=== PATIENT | female | born 1980 | race Caucasian/White ===

== ENCOUNTER 2016-08-01 18:50 | Emergency (ER) | payer MEDICAID, OTHER ==
[~2016-08-01] VITALS: Ht 170.2 cm; Wt 103.0 kg
[2016-08-01 19:39] VITALS: BP 132/77
--- NOTE | 2016-08-01 20:00 | NUR ---
PT TAKEN TO BED 7
--- NOTE | 2016-08-01 20:10 | NUR ---
Dr. Berg evaluating patient at bedside.
[2016-08-01] MEDS ORDERED: ACETAMINOPHEN 325 MG TAB ONE (20:20)
[2016-08-01] MEDS ORDERED: KETOROLAC 30 MG/ML VIAL IM ONE (20:25)
--- NOTE | 2016-08-01 20:46 | NUR ---
PATIENT PRESENTS TO ED WITH SORE THROAT, COUGH, AND HEADACHE . PT STATES SHE HAS HAD AN CONSTANT ACHING FEELING X1DAY . DENIES N/V/D; SKIN IS PINK/WARM/DRY; AAOX4 WITH EVEN AND STEADY GAIT; LUNGS CLEAR BL; HR EVEN AND REGULAR; PT DENIES ANY CP, SOB, OR COUGH AT THIS TIME; PATIENT STATES PAIN OF 5/10 AT THIS TIME; VSS; PATIENT POSITIONED FOR COMFORT; HOB ELEVATED; BEDRAILS UP X2; BED DOWN. ER MD MADE AWARE OF PT STATUS.
[2016-08-01] MEDS ORDERED: IBUPROFEN 400 MG TAB ONE (21:14)
[2016-08-01 21:35] VITALS: BP 132/77
--- NOTE | 2016-08-01 21:36 | NUR ---
Patient discharged with v/s stable. Written and verbal after care instructions given and explained. Patient alert, oriented and verbalized understanding of instructions. Ambulatory with steady gait. All questions addressed prior to discharge. ID band removed. Patient advised to follow up with PMD. Rx of GUAIATUSSIN, NAPROSYN, TAMIFLU, AND AZITHROMYCIN 250MG BID given. Patient educated on indication of medication including possible reaction and side effects. Opportunity to ask questions provided and answered.
== END 2016-08-01 21:36 | disposition home or self-care (01) ==
LOC: MED 18:50
DX: J20.9 Acute bronchitis, unspecified (principal); J02.9 Acute pharyngitis, unspecified
CPT/HCPCS: 36415; 87804; 96372; 99284; J1885

== ENCOUNTER 2017-07-10 19:40 | Emergency (ER) | payer OTHER ==
[~2017-07-10] VITALS: Ht 170.2 cm; Wt 98.7 kg
[2017-07-10 20:09] VITALS: BP 151/74
--- NOTE | 2017-07-10 20:10 | NUR ---
PT RETURNED TO LOBBY
--- NOTE | 2017-07-10 21:02 | NUR ---
pt back from xray via w/c to O/F chair 5
--- NOTE | 2017-07-10 21:02 | NUR ---
37/F CAME IN W C/O 10/24 RT FOOT PAIN S/P HITTING TOES ON DRESSER YESTERDAY. RT 5TH METATARSAL NOTED WITH ECHYMOSIS, PEDAL EDEMA NOTED, +PMSC TO RT FOOT WITH C/O PAIN WHILE AMBULATING, DENIES WEAKNESS, NUMBNESS/TINGLING. DENIES OTHER PMH/RX/OTC
[2017-07-10 21:55] VITALS: BP 127/77
== END 2017-07-10 21:53 | disposition home or self-care (01) ==
LOC: MED 19:40
DX: S92.514A Nondisplaced fracture of proximal phalanx of right lesser toe(s), initial encounter for closed fracture (principal); W22.8XXA Striking against or struck by other objects, initial encounter; Y93.89 Activity, other specified; Y92.89 Other specified places as the place of occurrence of the external cause; Y99.8 Other external cause status
CPT/HCPCS: 73630; 81002; 81025; 99284